=== PATIENT | male | born 1980 | race African-American/Black ===

== ENCOUNTER 2017-06-03 08:24 | Emergency (ER) | payer OTHER ==
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
[2017-06-03 10:14] VITALS: BP 116/80
== END 2017-06-03 10:14 | disposition home or self-care (01) ==
LOC: ER 08:24
DX: S16.1XXA Strain of muscle, fascia and tendon at neck level, initial encounter (principal); M54.2 Cervicalgia; M25.561 Pain in right knee; V43.52XA Car driver injured in collision with other type car in traffic accident, initial encounter
CPT/HCPCS: 99283